=== PATIENT | male | born 1940 | race Caucasian/White ===

== ENCOUNTER 2019-01-04 19:54 | Inpatient (IN) | payer OTHER ==
[~2019-01-04] VITALS: Ht 165.1 cm; Wt 81.5 kg
[2019-01-04 20:14] LABS: HEMOGLOBIN 11.6 gm/dL (14.0-18.0); MCH 30.4 pg (26.0-34.0); MCHC 33.1 g/dL (28.0-37.0); MCV 91.9 fL (80.0-100.0); PLATELET COUNT 197 thou/uL (150-400); RBC 3.81 mil/uL (4.50-6.00); RDW 14.6 % (10.5-14.5); WBC 11.7 thou/uL (4.0-11.0)
[2019-01-04 20:17] LABS: URINE BILIRUBIN NEGATIVE (Negative); URINE BLOOD NEGATIVE (Negative); URINE CLARITY CLEAR; URINE COLOR YELLOW; URINE GLUCOSE-RANDOM* NEGATIVE (Negative); URINE KETONES NEGATIVE (Negative); URINE LEUKOCYTES-REFLEX NEGATIVE (Negative); URINE NITRITE-REFLEX NEGATIVE (Negative); URINE PROTEIN (DIPSTICK) TRACE (Negative); URINE SPECIFIC GRAVITY <= 1.005 (1.005-1.035); URINE UROBILINOGEN 0.2 E.U./dl (0.2-1.0)
[2019-01-04 20:22] LABS: ANION GAP 10 mmol/L (7-16); BUN 60 mg/dL (7-18); CALCIUM 9.1 mg/dL (8.5-10.1); CHLORIDE 104 mmol/L (98-107); CO2 27 mmol/L (21-32); CREATININE 4.1 mg/dL (0.7-1.3); GLUCOSE 111 mg/dL (74-106); POTASSIUM 3.9 mmol/L (3.5-5.1); SODIUM 141 mmol/L (136-145)
[2019-01-04 20:30] LABS: TROPONIN-I <0.06 ng/mL (<0.06)
[2019-01-04 20:48] LABS: ABSOLUTE NEUTROPHILS 8.1 thou/uL (1.4-8.2)
[2019-01-04 20:49] LABS: PLATELET ESTIMATE NORMAL
[2019-01-04 22:12] VITALS: BP 149/62
[2019-01-04 22:19] VITALS: BP 150/50
[2019-01-04 23:00] VITALS: BP 170/79
[2019-01-04] MEDS ORDERED: TYLENOL325 MG PO (23:58)
[2019-01-05] MEDS ORDERED: AMLODIPINE BESY10 MG PO (00:02)
[2019-01-05] MEDS ORDERED: XANAX 0.5 MG0.5 MG PO (00:02)
[2019-01-05] MEDS ORDERED: BREO ELLIPTA 11 EACH IH (00:04)
[2019-01-05] MEDS ORDERED: PERIDEX15 ML PO (00:06)
[2019-01-05] MEDS ORDERED: EFFEXOR XR75 MG PO (00:07)
[2019-01-05] MEDS ORDERED: FLOMAX0.4 MG PO (00:07)
[2019-01-05] MEDS ORDERED: MIRALAX17 GM PO (00:08)
[2019-01-05] MEDS ORDERED: GLUCOTROL5 MG PO (00:08)
[2019-01-05] MEDS ORDERED: LATUDA20 MG PO (00:09)
[2019-01-05] MEDS ORDERED: CRESTOR40 MG PO (00:10)
[2019-01-05] MEDS ORDERED: SALINE NASAL M126 ML NASAL (00:12)
[2019-01-05] MEDS ORDERED: SPIRIVA INH (00:17)
[2019-01-05] MEDS ORDERED: TRAMADOL 50 MG50 MG PO ×2 (00:17→00:18)
[2019-01-05] MEDS ORDERED: EFFEXOR XR37.5 MG PO (00:19)
[2019-01-05] MEDS ORDERED: VITAMIN D2000 UNIT PO (00:20)
[2019-01-05] MEDS ORDERED: ZIPRASIDONE HCL20 M2 PO (00:20)
[2019-01-05 05:09] LABS: HEMATOCRIT 32.5 % (42.0-52.0); HEMOGLOBIN 10.8 gm/dL (14.0-18.0); MCH 30.7 pg (26.0-34.0); MCHC 33.3 g/dL (28.0-37.0); MCV 92.3 fL (80.0-100.0); RBC 3.52 mil/uL (4.50-6.00); WBC 10.1 thou/uL (4.0-11.0)
[2019-01-05 05:20] LABS: ALBUMIN 2.8 g/dL (3.4-5.0); CALCIUM 8.1 mg/dL (8.5-10.1); CREATININE 3.4 mg/dL (0.7-1.3); POTASSIUM 3.5 mmol/L (3.5-5.1); TOTAL BILIRUBIN 0.3 mg/dL (<0.1-1.0); TOTAL PROTEIN 6.3 g/dL (6.4-8.2)
[2019-01-05 05:30] VITALS: BP 157/67
--- NOTE | 2019-01-05 08:15 | EKG ---
[address] [address] ELECTROCARDIOGRAM REPORT Name: MEGHA ROSAS Room #: 430-P ADM IN M.R.#: [id number] ������������������ Admission: 01/04/19 ������������������ Attend Phys: Byron Reeder MD Discharge: ������������������ Date of : 42 Report #: [id number] ����������������������������������������������������������������� [id number] THIS REPORT FOR: //name// [facility] ED Test Date: 2019-01-04 Test Time: 20:17:19 Pat Name: MEGHA ROSAS Department: Room: 430 Gender: M Lard Maker: any : 1940 Requested By: Kerline Henry Order Number: [id number] MD: yKle Glover Measurements Intervals [place] Rate: 91 P: 63 [place]: 149 QRS: 24 QRSD: 97 T: 56 QT: 395 QTc: 487 Interpretive Statements Sinus rhythm Probable left atrial enlargement Borderline prolonged QT interval No previous ECG available for comparison Electronically Signed On 01-05-2019 8:15:16 CDT by Kyle Glover [email or web address] ��������������������������������������������� <ELECTRONICALLY SIGNED> ���������������������������������������� By: Kyle Glover MD ��������������������������������������������� 01/05/19814 16 16 Kyle Glover MD /ELYSE
[2019-01-05 08:37] VITALS: BP 172/58
--- NOTE | 2019-01-05 08:41 | 2DMMODE ---
[facility] [address] [place] [address] 2 D/M-MODE ECHOCARDIOGRAM Name: MEGHA ROSAS Room #: 430-P ADM IN ..#: [id number] ������������� Admission: 01/04/19 ������������� Attend Phys: Byron Reeder MD Discharge: ��� ������������� ��� Date of : 42 Date of Service: 01/05/19 0841 �� Report #: [id number] �������� ��������������������������������������������[id number] THIS REPORT FOR: //name// APPROVED REPORT Study performed: 01/05/2019 08:09:08 EXAM: Comprehensive 2D, Doppler, and color-flow Echocardiogram Patient Location: Bedside Room #: 430 Status: routine BSA: 1.89 HR: 63 bpm BP: 157/67 mmHg Rhythm: Sinus arrhythmia Other Information Study Quality: Adequate Technically limited study due to little patient cooperation. Indications Systolic heart failure. Hx: ISCM, CHF, DM. 2D Dimensions RVDd: 39.95 mm IVSd: 12.94 (7-11mm) LVOT Diam: 21.24 (18-24mm) LVDd: 47.19 mm PWd: 9.24 (7-11mm) Ascending Ao: 32.37 (22-36mm) LVDs: 33.06 (25-40mm) Aortic Root: 38.93 mm Volumes Left Atrial Volume (Systole) Single Plane 4CH: 35.41 mL Single Plane 2CH: 56.26 mL LA ESV Index: 25.00 mL/m2 Aortic Valve AoV Peak Gabe.: 1.35 m/s AO Peak Gr.: 7.32 mmHg LVOT Max P.55 mmHg LVOT Max V: 0.94 m/s MEGAN Vmax: 2.47 cm2 Mitral Valve E/A Ratio: 0.8 [facility] [address] [place] [address] 2 D/M-MODE ECHOCARDIOGRAM Name: MEGHA ROSAS Room #: [address] [place] [address] [place] [facility]#: [id number] ������������� Admission: 01/04/19 ������������� Attend Phys: Byron Reeder MD Discharge: ��� ������������� ��� Date of : 42 Date of Service: 01/05/19 0841 �� Report #: [id number] �������� ��������������������������������������������[id number] MV Decel. Time: 169.89 ms MV E Max Gabe.: 0.78 m/s MV A Gabe.: 0.99 m/s MV PHT: 49.27 ms IVRT: 64.59 ms Pulmonary Valve PV Peak Gabe.: 1.02 m/s PV Peak Gr.: 4.13 mmHg Pulmonary Vein P Vein S: 0.73 m/s P Vein A: 0.33 m/s P Vein D: 0.61 m/s P Vein A Dur.: 124.6 msec P Vein S/D Ratio: 1.20 Tricuspid Valve RAP Estimate: 5.00 mmHg Left Ventricle The left ventricle is normal size. There is normal LV segmental wall motion. Mild basal septal hypertrophy is present. Left ventricular systolic function is normal. LVEF is 55-60%. Mild diastolic dysfunction is present (impaired relaxation pattern). Right Ventricle The right ventricle is normal size. The right ventricular systolic function is normal. Atria The left atrium size is normal. The right atrium size is normal. Aortic Valve Aortic valve leaflets are mildly calcified. No aortic regurgitation is present. There is no aortic valvular stenosis. Mitral Valve Mild mitral annular calcification. There is no mitral valve regurgitation noted. No evidence of mitral valve stenosis. Tricuspid Valve The tricuspid valve is normal in structure. There is no tricuspid valve regurgitation noted. Unable to assess PA pressure. Pulmonic Valve Pulmonic valve is not well visualized. Trace pulmonic regurgitation. [facility] [address] [place] [address] 2 D/M-MODE ECHOCARDIOGRAM Name: MEGHA ROSAS Room #: 430-P [facility] IN .R.#: [id number] ������������� Admission: 01/04/19 ������������� Attend Phys: Byron Reeder MD Discharge: ��� ������������� ��� Date of : 42 Date of Service: 01/05/19 0841 �� Report #: [id number] �������� ��������������������������������������������[id number] [employer] Aortic root is mildly dilated at 3.9cm. The ascending aorta is normal in size. IVC is normal in size and collapses >50% with inspiration. Pericardium There is no pericardial effusion. <Conclusion> Left ventricular systolic function is normal. There is normal LV segmental wall motion. LVEF is 55-60%. Mild diastolic dysfunction . Aortic valve leaflets are mildly calcified. No aortic regurgitation, no stenosis Mild mitral annular calcification, no mitral valve regurgitation. Unable to assess pulmonary artery pressure. There is no pericardial effusion. ��������������������������������������������� <ELECTRONICALLY SIGNED> ���������������������������������������� By: Naresh Luis MD, [facility] ��������������������������������������������� 01/05/19840 0 0 Naresh Luis MD, FACC /INF
[2019-01-05 15:33] VITALS: BP 178/68
[2019-01-05 20:09] VITALS: BP 161/98
[2019-01-06 02:22] VITALS: BP 177/78
[2019-01-06 08:36] VITALS: BP 162/125
[2019-01-06 09:24] LABS: MCH 30.8 pg (26.0-34.0); MCHC 34.1 g/dL (28.0-37.0); MCV 90.2 fL (80.0-100.0); RBC 4.21 mil/uL (4.50-6.00); WBC 10.2 thou/uL (4.0-11.0)
[2019-01-06 09:30] LABS: CALCIUM 8.6 mg/dL (8.5-10.1); MAGNESIUM 1.7 mg/dL (1.8-2.4); POTASSIUM 3.6 mmol/L (3.5-5.1)
[2019-01-06 09:33] LABS: CREATININE 2.2 mg/dL (0.7-1.3)
[2019-01-06 11:40] VITALS: BP 146/74
[2019-01-06 16:30] VITALS: BP 137/74
[2019-01-06 22:31] VITALS: BP 165/67
[2019-01-07 08:00] VITALS: BP 145/60
[2019-01-07 11:46] LABS: HEMATOCRIT 37.7 % (42.0-52.0); HEMOGLOBIN 12.5 gm/dL (14.0-18.0); MCH 30.1 pg (26.0-34.0); MCHC 33.3 g/dL (28.0-37.0); MCV 90.4 fL (80.0-100.0); RBC 4.17 mil/uL (4.50-6.00); RDW 14.1 % (10.5-14.5); WBC 9.9 thou/uL (4.0-11.0)
[2019-01-07 11:53] LABS: CALCIUM 8.5 mg/dL (8.5-10.1); CREATININE 1.8 mg/dL (0.7-1.3); MAGNESIUM 1.7 mg/dL (1.8-2.4); POTASSIUM 3.7 mmol/L (3.5-5.1)
[2019-01-07 16:00] VITALS: BP 173/64
[2019-01-07 20:40] VITALS: BP 101/82
[2019-01-08 05:18] VITALS: BP 155/79
[2019-01-08 08:15] VITALS: BP 175/69
[2019-01-08 17:35] VITALS: BP 149/59
[2019-01-08 22:42] VITALS: BP 132/100
[2019-01-09 06:00] VITALS: BP 143/73
[2019-01-09 07:19] VITALS: BP 158/53
[2019-01-09 15:33] VITALS: BP 143/53
[2019-01-09 20:13] VITALS: BP 135/65
[2019-01-10 05:57] LABS: HEMATOCRIT 35.2 % (42.0-52.0); HEMOGLOBIN 11.9 gm/dL (14.0-18.0); MCH 30.4 pg (26.0-34.0); MCHC 33.9 g/dL (28.0-37.0); MCV 89.7 fL (80.0-100.0); RBC 3.93 mil/uL (4.50-6.00); RDW 13.8 % (10.5-14.5); WBC 10.4 thou/uL (4.0-11.0)
[2019-01-10 06:06] LABS: CALCIUM 8.6 mg/dL (8.5-10.1); CREATININE 1.7 mg/dL (0.7-1.3); MAGNESIUM 1.5 mg/dL (1.8-2.4); POTASSIUM 3.7 mmol/L (3.5-5.1)
[2019-01-10 06:13] VITALS: BP 139/68
[2019-01-10 08:06] VITALS: BP 167/56
[2019-01-10 13:25] VITALS: BP 167/56
[2019-01-10 17:19] VITALS: BP 118/49
== END 2019-01-10 17:43 | DRG 682 ==
LOC: ER 19:54 → EROBS 21:37 → 4E 21:37
PROVIDERS: Internal Medicine; Nurse Practitioner; Student in an Organized Health Care Education/Training Program; ADMIT Internal Medicine
DX: N17.9 Acute kidney failure, unspecified (principal); G93.41 Metabolic encephalopathy; I50.22 Chronic systolic (congestive) heart failure; F03.91 Unspecified dementia, unspecified severity, with behavioral disturbance; N13.4 Hydroureter; G93.40 Encephalopathy, unspecified; I25.5 Ischemic cardiomyopathy; E11.9 Type 2 diabetes mellitus without complications; I50.9 Heart failure, unspecified; G89.29 Other chronic pain; F32.9 Major depressive disorder, single episode, unspecified; E78.5 Hyperlipidemia, unspecified; F41.9 Anxiety disorder, unspecified; N18.3 Chronic kidney disease, stage 3 (moderate); N32.0 Bladder-neck obstruction; R53.81 Other malaise; N40.1 Benign prostatic hyperplasia with lower urinary tract symptoms; R33.8 Other retention of urine; Z85.51 Personal history of malignant neoplasm of bladder
CPT/HCPCS: 10084